=== PATIENT | female | born 1990 | race Hispanic/Latino ===

== ENCOUNTER 2018-10-15 16:59 | Emergency (ER) | payer SELFPAY ==
[~2018-10-15] VITALS: Ht 152.4 cm; Wt 61.7 kg
[2018-10-15 19:19] LABS: COLOR,URINE YELLOW (YELLOW)
[2018-10-15 19:20] LABS: BILIRUBIN,URINE NEGATIVE (NEGATIVE); CLARITY,URINE HAZY (CLEAR); KETONES,URINE NEGATIVE (NEGATIVE); LEUKOCYTE ESTERASE ,URINE 1+ (NEGATIVE); NITRITE,URINE NEGATIVE (NEGATIVE); PREGNANCY TEST, URINE NEGATIVE (NEGATIVE); PROTEIN,URINE DIPSTICK NEGATIVE (NEGATIVE); URINE UROBILINOGEN 0.2 mg/dL (0.2 - 1)
[2018-10-15 19:39] LABS: BACTERIA,URINE MODERATE /HPF; EPITHELIAL CELLS,URINE MODERATE /LPF; RBC,URINE 0-5 /HPF (0-5); WBC,URINE (MAN) 21-50 /HPF (0-5)
[2018-10-15] MEDS ORDERED: CEFTRIAXONE SOD 1 GM VIAL IM ONE (23:00)
[2018-10-15] MEDS ORDERED: LIDOCAINE HCL 1% LOCAL INJ 20 ML VIAL ONE (23:04)
== END 2018-10-15 23:30 | disposition home or self-care (01) ==
LOC: ER 16:59
DX: R30.0 Dysuria (principal); M54.5 Low back pain; N10 Acute pyelonephritis; N12 Tubulo-interstitial nephritis, not specified as acute or chronic; N39.0 Urinary tract infection, site not specified
CPT/HCPCS: 81001; 81025; 99283; J0696; J2001